=== PATIENT | male | born 1965 | race Caucasian/White ===

== ENCOUNTER 2021-09-13 09:10 | Emergency (ER) | payer OTHER, SELFPAY ==
[2021-09-13 09:17] VITALS: BP 150/101; PULSE 91; RESP 20; TEMP 36.2; O2SAT 95; BMI 47.9
--- NOTE | 2021-09-13 09:25 | ED.GENADULT ---
HPI - General Adult General Time Seen by Provider: 09:25 Date Seen: 09/13/21 Chief complaint: High Blood Pressure Stated complaint: High blood pressure Time Seen by Provider: 09/13/21 09:14 Source: patient, RN notes reviewed and old records reviewed Mode of arrival: ambulatory Limitations: no limitations History of Present Illness HPI narrative: Bailey is a 56-year-old male coming in with an elevated blood pressure in the setting of hypertension. He reportedly is a type 2 diabetic with hyperlipidemia and hypertension. His blood pressures were elevated in the 180s as per nursing notes yesterday. [place] a little dizzy yesterday. He did have 1 drink yesterday was out to eat with dinner of [employer], baked beans and some celery cucumbers and tomatoes. He does not believe he had excessive sodium load yesterday. He does think that he may be accidentally took an extra cholesterol medication. He thinks he might be on Lipitor. He does go to [facility]. He notes late spring Dr. Everett increased his blood pressure medicine from 20 mg to 40 mg. He does not remember the name but this certainly sounds like it could be lisinopril. He tries to minimize alcohol use and maybe just has 1 drink a week. Again he tries to not get too much sodium in his diet. [place] little dizzy yesterday. He called the clinic and could not get in. He does have an appointment with his clinic October 17 for follow-up of his blood pressure. He denies any stroke symptoms such as numbness tingling weakness or incoordination, no speech, no visual changes. He is not having any chest pain, no shortness of breath currently. He has never had his blood pressure cuff standard I is against the clinic. He is advised to take his own blood pressure cuff to clinic at his next visit. Related Data Home Medications Medication Instructions Recorded Confirmed albuterol sulfate 90 mcg/actuation INHALATION 09/13/21 aerosol inhaler atorvastatin 20 mg tablet mg 09/13/21 lisinopril 20 mg tablet mg 09/13/21 metformin 1,000 mg tablet mg 09/13/21 omeprazole 20 mg capsule,delayed mg 09/13/21 release Review of Systems Status of ROS: Reports: 10 or more systems reviewed and unremarkable except as noted in History and below [facility] Medical History (Updated 09/13/21 @ 11:12 by Mayda Elias MD) Asthma Kidney stones Social History Smoking Status: Never smoker Do you use any of these nicotine containing products: None Second hand tobacco smoke exposure: No How often do you have a drink containing alcohol: 2-4 times a month How many standard drinks containing alcohol do you have on a typical day: 1 or 2 How often do you have six or more drinks on one occasion: Never AUDIT-C Alcohol total score: 2 Non-prescribed substance use: denies use service: No Exam Const: Vital Signs, click to edit/add: Vital Signs - 24 hr 09/13/21 09:17 Temperature 97.1 F L Pulse Rate [Pulse Oximeter] 91 Respiratory Rate 20 Blood Pressure [Le ft Upper Arm] 150/101 H Pulse Oximetry 95 Documenting provider has reviewed patient's vital signs: yes Common normals: no apparent distress, oriented x3, no limitations and alert General appearance: cooperative and comfortable Nutritional appearance: obese Orientation/consciousness: Yes awake HENMT: Common normals: normocephalic, head/scalp atraumatic, hearing grossly normal bilaterally, external ears normal, external nose normal, nasal mucous membranes and turbinates normal, moist oral mucous membranes and oropharynx normal Head and scalp: normocephalic and atraumatic Nose: external nose normal and nasal mucous membranes and turbinates normal External ear: external ears normal Eye: Common normals: PERRL, EOMs intact bilaterally, conjunctivae normal and no scleral icterus Conjunctiva: conjunctiva(e) normal Pupil: PERRL Neck & C-Spine: Common normals: full ROM (Neck is thick), no lymphadenopathy, supple, no meningeal signs, no JVD and thyroid normal Thyroid: thyroid normal Resp: Common normals: normal respiratory effort, no retractions, no use of accessory muscles and clear to auscultation bilaterally Auscultation: clear to auscultation bilaterally Cardio: Common normals: no JVD, regular rate, regular rhythm, S1 normal heart sound, S2 normal heart sound, no gallops, no clicks and no murmurs Rate: regular rate Rhythm: regular rhythm Heart sounds: S1 normal and S2 normal GI: Common normals: Normal to inspection, nondistended, normoactive bowel sounds present, soft to palpation, non-tender, no hepatosplenomegaly and no masses (But body habitus could make exam more difficult) Palpation: soft and no hepatosplenomegaly Extremity: Common normals: normal to inspection, full ROM, normal capillary refill, no joint enlargement, no clubbing, cyanosis or edema, no calf tenderness and no pedal edema Neuro: Common normals: oriented x3, CN's II-XII intact bilaterally, moves all extremities, no focal motor deficits and gait normal Sensorium/orientation: awake and alert Meningeal signs: no meningeal signs Course Course Hospital Course: Will obtain some baseline labs with a CBC and comprehensive metabolic panel. Will also get an EKG. Her be on pulse oximetry while here and routine blood pressure monitoring. His blood pressure is mildly elevated here in certainly not with an guidelines. However he is in an ED setting which is well known to have have elevations happen. However with that said, his blood pressure certainly sound escalated at home. He does need to have his cuff standardized again clinic moderate her. Regardless, he is likely not in maximal therapy for his hypertension. We will see if we can get his medications from the pharmacy. He is having no acute hypertensive emergency or urgency at this time, no evidence of any end-organ damage that is acute. Will see what his electrolytes are and kidney function to see what other possible medication he might be able to add in. Reevaluation(s) Reevaluation #1: Bailey remains asymptomatic. His last blood pressures here without any intervention its have been systolics of 134 and 145. Thus, the dilemma in the ER about managing hypertension when it is not hypertensive urgency or emergency. Have reviewed with Bailey that he absolutely needs to have his blood pressure cuff standardized against a clinic blood pressure. There is the very plausible scenario that I add in medicine today and drop him too far. This really needs to be monitored and followed outpatient with his primary provider. Time: 11:08 Vital Signs Vital signs: Initial Vital Signs Temperature 97.1 F L 09/13/21 09:17 Temperature Source Temporal Artery Scan 09/13/21 09:17 Pulse Rate 91 09/13/21 09:17 Pulse Rhythm 09/13/21 09:17 Respiratory Rate 20 09/13/21 09:17 Blood Pressure 150/101 H 09/13/21 09:17 Blood Pressure Mean 117 09/13/21 09:17 Pulse Oximetry 95 09/13/21 09:17 Oxygen Delivery Method 09/13/21 09:17 Vital Signs Temperature 97.1 F L 09/13/21 09:17 Pulse Rate 91 09/13/21 09:17 Respiratory Rate 20 09/13/21 09:17 Blood Pressure 150/101 H 09/13/21 09:17 Pulse Oximetry 95 09/13/21 09:17 Temperature 97.1 F L 09/13/21 09:17 Pulse Rate 91 09/13/21 09:17 Respiratory Rate 20 09/13/21 09:17 Blood Pressure 150/101 H 09/13/21 09:17 Pulse Oximetry 95 09/13/21 09:17 Medical Decision Making Lab Data Labs: Lab Results 09/13/21 09/13/21 Range/Units 09:52 09:53 WBC 8.13 (4.50-11.00) K/uL RBC 5.07 (4.30-5.90) m/uL Hgb 14.4 (13.5-17.5) gm/dL Hct 43.6 (37.0-53.0) % MCV 86 (80-100) fL MCH 28 (26-34) pg MCHC 33 (32-36) gm/dL RDW Coeff of [place] 12.2 (11.5-15.5) % Plt Count 267 (140-440) K/uL Neut % (Auto) 65.5 (42.0-72.0) % Lymph % (Auto) 23.4 (20-44) % Page % (Auto) 7.5 (0.0-11.0) % Eos % (Auto) 2.2 (0.0-7.0) % Baso % (Auto) 0.9 (0.0-3.0) % Neut # (Auto) 5.33 (1.7-7.0) K/uL Lymph # (Auto) 1.90 (0.90-2.90) K/uL Page # (Auto) 0.60 (0.00-0.90) K/UL Eos # (Auto) 0.18 (0.00-0.50) K/uL Baso # (Auto) 0.07 (0.00-0.30) K/uL Abs Immat Gran (auto) 0.04 (0.00-0.30) K/uL Sodium 137 (135-149) mmol/L Potassium 3.9 (3.6-5.1) mmol/L Chloride 103 (96-114) mmol/L Carbon Dioxide 29 (20-32) mmol/L BUN 14 (7-30) mg/dL Creatinine 0.9 (0.5-1.5) mg/dL Estimated Creat Clear 78.77 Estimated GFR 100 ml/min Glucose 195 H (60-115) mg/dL Calcium 8.6 (8.4-10.6) mg/dL Total Bilirubin 0.5 (0.1-1.5) mg/dL AST 51 H (12-35) U/L ALT 59 H (4-50) U/L Alkaline Phosphatase 120 (40-150) U/L Total Protein 7.4 (6.0-8.3) g/dL Albumin 4.2 (3.3-5.0) g/dL ECG Data Attestation: I personally reviewed and interpreted this ECG as follows: (Sinus rhythm, 89 beats per minute.) Prior ECG tracings: not available for review Critical Care Time Critical Care Time Critical Care Time: No Discharge Plan Discharge Clinical Impression: Hypertension Condition: Stable Instructions: DASH Eating Plan (ED), Hypertension (ED) Additional Instructions: You need to have your blood pressure cuff standardized against the clinic blood pressure. Need to see if the clinic can move your appointment closer than the current 1 you have at the end of September. Highly recommend low-sodium, ongoing physical activity and a goal of weight loss to help with lifestyle modification of your blood pressure. At this time, with your latest readings being closer to normal here in the ER, am concerned that addition of further medicine is perhaps not indicated. Do think further investigation needs to be done and this can be managed outpatient. Activity Level: Activity as Tolerated Discharge Diet: Heart Healthy (2 gm sodium, low fat) Prescriptions: No Action atorvastatin 20 mg tablet 0RF Label Comments: TAKE 1 TABLET BY MOUTH ONCE DAILY. lisinopril 20 mg tablet 0RF Label Comments: TAKE ONE TABLET (20MG) BY MOUTH TWO TIMES DAILY metformin 1,000 mg tablet 0RF Label Comments: TAKE ONE TABLET BY MOUTH TWICE A DAY omeprazole 20 mg capsule,delayed release(DR/EC) 0RF Label Comments: TAKE 1 CAPSULE BY MOUTH ONCE DAILY BEFORE A MEAL. albuterol sulfate 90 mcg/actuation HFA aerosol inhaler INHALATION 0RF Label Comments: INHALE 2 PUFFS BY MOUTH EVERY FOUR HOURS WHILE AWAKE Stand Alone [facility]: [facility] Inst[facility]
[2021-09-13 09:59] LABS: Basophils Absolute Auto 0.07 K/uL (0.00-0.30); Basophils Percent Auto 0.9 % (0.0-3.0); Eosinophils Absolute Auto 0.18 K/uL (0.00-0.50); Eosinophils Percent Auto 2.2 % (0.0-7.0); Hematocrit 43.6 % (37.0-53.0); Hemoglobin* 14.4 gm/dL (13.5-17.5); Immature Granulocytes Abs Auto 0.04 K/uL (0.00-0.30); Lymphocytes Percent Auto 23.4 % (20-44); Mean Corpuscular HGB Conc 33 gm/dL (32-36); Mean Corpuscular Hemoglobin 28 pg (26-34); Mean Corpuscular Volume 86 fL (80-100); Monocytes Percent Auto 7.5 % (0.0-11.0); Neutrophils Absolute Auto 5.33 K/uL (1.7-7.0); Neutrophils Percent Auto 65.5 % (42.0-72.0); Platelet Count* 267 K/uL (140-440); RDW Coefficient of Variation % 12.2 % (11.5-15.5); Red Blood Count 5.07 m/uL (4.30-5.90); Slide Review Reflex No; White Blood Count* 8.13 K/uL (4.50-11.00)
[2021-09-13 10:00] VITALS: BP 134/96; BP 156/93; PULSE 99; O2SAT 93; O2SAT 94
[2021-09-13 10:13] LABS: Albumin* 4.2 g/dL (3.3-5.0); Chloride* 103 mmol/L (96-114); Sodium* 137 mmol/L (135-149)
[2021-09-13 10:14] LABS: Potassium* 3.9 mmol/L (3.6-5.1)
[2021-09-13 10:16] LABS: Alanine Aminotransferase* 59 U/L (4-50); Alkaline Phosphatase* 120 U/L (40-150); Aspartate Amino Transferase* 51 U/L (12-35); Bilirubin Total* 0.5 mg/dL (0.1-1.5); Blood Urea Nitrogen* 14 mg/dL (7-30); Carbon Dioxide* 29 mmol/L (20-32); Creatinine* 0.9 mg/dL (0.5-1.5); Est. Creatinine Clearance* 78.77; Estimated Glomerular Filt Rate 100 ml/min; Glucose* 195 mg/dL (60-115); Total Protein* 7.4 g/dL (6.0-8.3)
[2021-09-13 10:17] LABS: Calcium* 8.6 mg/dL (8.4-10.6)
[2021-09-13 10:40] VITALS: BP 139/93
[2021-09-13 11:00] VITALS: BP 145/91
== END 2021-09-13 11:25 | disposition home or self-care (01) ==
PROVIDERS: Emergency Provider Family Medicine; PCP Surgery
DX: I10 Essential (primary) hypertension (principal)
CPT/HCPCS: 36415; 80053; 85025; 93005; 99284; 99285